=== PATIENT | male | born 1960 ===

== ENCOUNTER 2017-06-03 15:43 | Inpatient (IN) ==
[2017-06-03] MEDS ORDERED: CLINDAMYCIN INJ 600 MG in PREMIX 1 EACH IV STA (16:30)
[2017-06-03] MEDS ORDERED: GLUCAGON 1 MG VIAL IM PRN ×2 (16:49→16:50)
[2017-06-03] MEDS ORDERED: DEXTROSE 50% 25 GM/50 ML VIAL IV PRN ×2 (16:49→16:50)
[2017-06-03] MEDS ORDERED: ZALEPLON 5 MG CAPSULE PO PRN (16:50)
[2017-06-03] MEDS ORDERED: MORPHINE 10 MG/1 ML VIAL IV PRN (16:50)
[2017-06-03] MEDS ORDERED: ACETAMINOPHEN 325 MG TABLET PO PRN (16:50)
[2017-06-03] MEDS ORDERED: ONDANSETRON 4 MG/2 ML VIAL IV PRN (16:50)
[2017-06-03] MEDS ORDERED: diphenhydrAMINE CAP 25 MG CAPSULE PO PRN (16:50)
[2017-06-03] MEDS ORDERED: CLINDAMYCIN INJ 50 ML IV ONE (17:46)
[2017-06-03 18:18] LABS: Risk Ratio 2.13; VLDL CHOLESTEROL 22.4 MG/DL
[2017-06-03] MEDS ORDERED: INSULIN DETEMIR 100 UNIT/ML SUBCUT SCH (21:00)
[2017-06-03] MEDS: glyBURIDE/METFORMIN 5-500 MG TABLET PO SCH (21:59)
[2017-06-03] MEDS: ENOXAPARIN 40 MG/0.4 ML SYRINGE SUBCUT SCH (22:00)
[2017-06-03] MEDS: DOCUSATE SODIUM 100 MG CAPSULE PO SCH (22:00)
[2017-06-03] MEDS: INSULIN REGULAR 100 UNIT/ML SUBCUT SCH (22:00)
[2017-06-03] MEDS: INSULIN GLARGINE 100 UNIT/ML SUBCUT SCH (22:00)
[2017-06-03] MEDS: PIPERACILLIN/TAZOBACTAM 3,375 MG in SODIUM CHLORIDE 0.9% 100 ML IV SCH (22:22)
[2017-06-03] MEDS: SODIUM CHLORIDE 0.45% 1,000 ML IV SCH (22:22)
[2017-06-04] MEDS: VANCOMYCIN INJ 1,250 MG in SODIUM CHLORIDE 0.45% 250 ML IV SCH ×2 (01:54→12:22)
[2017-06-04] MEDS: SODIUM CHLORIDE 0.45% 1,000 ML IV SCH ×3 (02:19→17:44)
[2017-06-04] MEDS: PIPERACILLIN/TAZOBACTAM 3,375 MG in SODIUM CHLORIDE 0.9% 100 ML IV SCH ×2 (06:45→15:52)
[2017-06-04 06:51] LABS: Basophils % 0.3 % (0.0-0.8); Eosinophils # 0.1 10*3/uL (0.0-0.87); Eosinophils % 1.1 % (0.00-10.9); Hematocrit 39.8 VOL% (42.0-52.0); Hemoglobin 13.8 GM/DL (14.0-18.0); Immature Granulocytes % 1.1 %; Lymphocytes # 2.2 10*3/uL (1.4-4.0); Lymphocytes % 25.1 % (21.2-54.2); Mean Corpuscular HGB Conc 34.7 GM/DL (32-36); Mean Corpuscular Hemoglobin 29 PG (27-34); Mean Corpuscular Volume 83.4 FL (87-102); Mean Platelet Volume 11.4 FL (9.6-12.0); Monocytes # 0.5 10*3/uL (0.11-0.8); Monocytes % 6.1 % (1.7-12.7); Neutrophils # 5.8 10*3/uL (1.4-7.4); Neutrophils % 66.3 % (38.7-73.9); Platelet Count 200 T/CUMM (130-400); Red Blood Count 4.77 MC/CUMM (3.8-5.5); Red Cell Distribution Width 12.8 % (9.3-17.3); White Blood Count 8.8 T/CUMM (4-12)
[2017-06-04 07:32] LABS: Albumin 3.2 G/DL (3.4-5.0); Bilirubin,Total 1.7 MG/DL (0.2-1.0); Calcium 8.9 MG/DL (8.5-10.1); Magnesium 1.6 MG/DL (1.8-2.4); Osmolality,Calculated 278.5 MOS/KG (273-304); Potassium 2.9 MMOL/L (3.5-5.1); Total Protein 6.8 G/DL (6.4-8.3)
[2017-06-04] MEDS ORDERED: INSULIN DETEMIR 100 UNIT/ML SUBCUT SCH (09:00)
[2017-06-04] MEDS: DOCUSATE SODIUM 100 MG CAPSULE PO SCH ×2 (09:45→20:32)
[2017-06-04] MEDS: POTASSIUM CHLORIDE 20 MEQ TABLET PO SCH ×4 (09:45→20:31)
[2017-06-04] MEDS: LISINOPRIL 20 MG TABLET PO SCH (09:45)
[2017-06-04] MEDS: amLODIPine 5 MG TABLET PO SCH (09:46)
[2017-06-04] MEDS: SIMVASTATIN 10 MG TABLET PO SCH (09:46)
[2017-06-04] MEDS: PANTOPRAZOLE 40 MG TABLET PO SCH (09:46)
[2017-06-04] MEDS: INSULIN REGULAR 100 UNIT/ML SUBCUT SCH ×4 (09:48→20:42)
[2017-06-04] MEDS: ASPIRIN EC 81 MG TABLET PO SCH (09:48)
[2017-06-04] MEDS: INSULIN NPH 100 UNIT/ML SUBCUT SCH ×3 (09:49→17:43)
[2017-06-04] MEDS ORDERED: LIDOCAINE 1%/EPI INJ 20 ML VIAL ONE (11:50)
[2017-06-04] MEDS ORDERED: LIDOCAINE 1%/EPI INJ 20 ML VIAL MISC INJ ONE (11:51)
[2017-06-04] MEDS: ENOXAPARIN 40 MG/0.4 ML SYRINGE SUBCUT SCH (20:32)
[2017-06-04] MEDS: INSULIN GLARGINE 100 UNIT/ML SUBCUT SCH (20:42)
[2017-06-05] MEDS: VANCOMYCIN INJ 1,250 MG in SODIUM CHLORIDE 0.45% 250 ML IV SCH ×2 (00:30→13:48)
[2017-06-05] MEDS: SODIUM CHLORIDE 0.45% 1,000 ML IV SCH ×3 (01:26→19:17)
[2017-06-05] MEDS: PIPERACILLIN/TAZOBACTAM 3,375 MG in SODIUM CHLORIDE 0.9% 100 ML IV SCH ×3 (03:26→18:21)
[2017-06-05 05:39] LABS: Basophils % 0.2 % (0.0-0.8); Eosinophils # 0.1 10*3/uL (0.0-0.87); Eosinophils % 1.8 % (0.00-10.9); Hematocrit 34.9 VOL% (42.0-52.0); Hemoglobin 12.4 GM/DL (14.0-18.0); Immature Granulocytes % 0.2 %; Immature Granulocytes Absolute 0.01 #; Lymphocytes # 2.1 10*3/uL (1.4-4.0); Lymphocytes % 33.9 % (21.2-54.2); Mean Corpuscular HGB Conc 35.5 GM/DL (32-36); Mean Corpuscular Hemoglobin 29 PG (27-34); Mean Corpuscular Volume 82.5 FL (87-102); Mean Platelet Volume 11.2 FL (9.6-12.0); Monocytes # 0.4 10*3/uL (0.11-0.8); Neutrophils # 3.5 10*3/uL (1.4-7.4); Neutrophils % 56.9 % (38.7-73.9); Platelet Count 182 T/CUMM (130-400); Red Blood Count 4.23 MC/CUMM (3.8-5.5); White Blood Count 6.1 T/CUMM (4-12)
[2017-06-05 06:02] LABS: Calcium 8.1 MG/DL (8.5-10.1); Magnesium 1.8 MG/DL (1.8-2.4); Osmolality,Calculated 282.8 MOS/KG (273-304); Potassium 3.2 MMOL/L (3.5-5.1)
[2017-06-05] MEDS: INSULIN REGULAR 100 UNIT/ML SUBCUT SCH ×4 (07:35→21:32)
[2017-06-05] MEDS: INSULIN NPH 100 UNIT/ML SUBCUT SCH ×3 (07:35→17:38)
[2017-06-05] MEDS: LISINOPRIL 20 MG TABLET PO SCH (09:08)
[2017-06-05] MEDS: PANTOPRAZOLE 40 MG TABLET PO SCH (09:09)
[2017-06-05] MEDS: ASPIRIN EC 81 MG TABLET PO SCH (09:09)
[2017-06-05] MEDS: amLODIPine 5 MG TABLET PO SCH (09:09)
[2017-06-05] MEDS: SIMVASTATIN 10 MG TABLET PO SCH (09:09)
[2017-06-05] MEDS: DOCUSATE SODIUM 100 MG CAPSULE PO SCH ×2 (09:09→21:31)
[2017-06-05] MEDS ORDERED: POTASSIUM CHLORIDE RIDER 10 MEQ in PREMIX 1 EACH IV PRN (20:53)
[2017-06-05] MEDS: INSULIN GLARGINE 100 UNIT/ML SUBCUT SCH (21:32)
[2017-06-05] MEDS: ENOXAPARIN 40 MG/0.4 ML SYRINGE SUBCUT SCH (21:33)
[2017-06-05] MEDS ORDERED: POTASSIUM CHLORIDE INJ 40 MEQ in SODIUM CHLORIDE 0.9% 500 ML IV ONE (22:00)
[2017-06-06] MEDS: VANCOMYCIN INJ 1,250 MG in SODIUM CHLORIDE 0.45% 250 ML IV SCH ×2 (01:12→14:42)
[2017-06-06] MEDS: SODIUM CHLORIDE 0.45% 1,000 ML IV SCH ×2 (01:13→10:03)
[2017-06-06] MEDS: PIPERACILLIN/TAZOBACTAM 3,375 MG in SODIUM CHLORIDE 0.9% 100 ML IV SCH ×3 (04:10→21:18)
[2017-06-06] MEDS ORDERED: MUPIROCIN 2% OINT 22 GM TUBE TOP ONE (06:41)
[2017-06-06] MEDS ORDERED: LIDOCAINE 2%/EPI 20 ML VIAL ONE (06:41)
[2017-06-06] MEDS: INSULIN NPH 100 UNIT/ML SUBCUT SCH ×3 (09:47→18:32)
[2017-06-06] MEDS: INSULIN REGULAR 100 UNIT/ML SUBCUT SCH ×4 (09:47→21:17)
[2017-06-06] MEDS: LISINOPRIL 20 MG TABLET PO SCH (10:04)
[2017-06-06] MEDS: amLODIPine 5 MG TABLET PO SCH (10:04)
[2017-06-06] MEDS: SIMVASTATIN 10 MG TABLET PO SCH (10:05)
[2017-06-06] MEDS: ASPIRIN EC 81 MG TABLET PO SCH (10:05)
[2017-06-06] MEDS: PANTOPRAZOLE 40 MG TABLET PO SCH (10:05)
[2017-06-06] MEDS: DOCUSATE SODIUM 100 MG CAPSULE PO SCH ×2 (10:06→21:17)
[2017-06-06] MEDS: POTASSIUM CHLORIDE 20 MEQ TABLET PO SCH ×2 (16:14→21:17)
[2017-06-06] MEDS ORDERED: POTASSIUM CHLORIDE 20 MEQ TABLET PO SCH (21:00)
[2017-06-06] MEDS: INSULIN GLARGINE 100 UNIT/ML SUBCUT SCH (21:17)
[2017-06-06] MEDS: ENOXAPARIN 40 MG/0.4 ML SYRINGE SUBCUT SCH (21:17)
[2017-06-07] MEDS: PIPERACILLIN/TAZOBACTAM 3,375 MG in SODIUM CHLORIDE 0.9% 100 ML IV SCH ×3 (03:25→21:23)
[2017-06-07 07:28] LABS: Calcium 8.1 MG/DL (8.5-10.1); Magnesium 1.8 MG/DL (1.8-2.4); Potassium 3.7 MMOL/L (3.5-5.1)
[2017-06-07] MEDS: INSULIN NPH 100 UNIT/ML SUBCUT SCH ×3 (08:56→18:24)
[2017-06-07] MEDS: INSULIN REGULAR 100 UNIT/ML SUBCUT SCH ×4 (08:56→21:24)
[2017-06-07] MEDS: PANTOPRAZOLE 40 MG TABLET PO SCH (10:17)
[2017-06-07] MEDS: LISINOPRIL 20 MG TABLET PO SCH (10:17)
[2017-06-07] MEDS: ASPIRIN EC 81 MG TABLET PO SCH (10:18)
[2017-06-07] MEDS: amLODIPine 5 MG TABLET PO SCH (10:18)
[2017-06-07] MEDS: SIMVASTATIN 10 MG TABLET PO SCH (10:18)
[2017-06-07] MEDS: DOCUSATE SODIUM 100 MG CAPSULE PO SCH ×2 (10:25→21:24)
[2017-06-07] MEDS: INSULIN GLARGINE 100 UNIT/ML SUBCUT SCH (21:24)
[2017-06-07] MEDS: ENOXAPARIN 40 MG/0.4 ML SYRINGE SUBCUT SCH (21:24)
[2017-06-08] MEDS: PIPERACILLIN/TAZOBACTAM 3,375 MG in SODIUM CHLORIDE 0.9% 100 ML IV SCH ×3 (05:10→22:01)
[2017-06-08 05:58] LABS: Basophils % 0.4 % (0.0-0.8); Eosinophils # 0.2 10*3/uL (0.0-0.87); Eosinophils % 3.5 % (0.00-10.9); Hematocrit 35.9 VOL% (42.0-52.0); Hemoglobin 12.7 GM/DL (14.0-18.0); Immature Granulocytes % 0.2 %; Immature Granulocytes Absolute 0.01 #; Lymphocytes # 1.7 10*3/uL (1.4-4.0); Lymphocytes % 35.4 % (21.2-54.2); Mean Corpuscular HGB Conc 35.4 GM/DL (32-36); Mean Corpuscular Hemoglobin 30 PG (27-34); Mean Corpuscular Volume 83.3 FL (87-102); Mean Platelet Volume 10.8 FL (9.6-12.0); Monocytes # 0.4 10*3/uL (0.11-0.8); Monocytes % 7.7 % (1.7-12.7); Neutrophils # 2.6 10*3/uL (1.4-7.4); Neutrophils % 52.8 % (38.7-73.9); Platelet Count 206 T/CUMM (130-400); Red Blood Count 4.31 MC/CUMM (3.8-5.5); Red Cell Distribution Width 13.3 % (9.3-17.3); White Blood Count 4.8 T/CUMM (4-12)
[2017-06-08 06:29] LABS: Calcium 8.6 MG/DL (8.5-10.1); Magnesium 1.9 MG/DL (1.8-2.4); Osmolality,Calculated 283.8 MOS/KG (273-304); Potassium 3.4 MMOL/L (3.5-5.1)
[2017-06-08] MEDS ORDERED: POTASSIUM CHLORIDE 20 MEQ TABLET PO ONE (08:08)
[2017-06-08] MEDS: INSULIN NPH 100 UNIT/ML SUBCUT SCH ×3 (08:43→17:11)
[2017-06-08] MEDS: INSULIN REGULAR 100 UNIT/ML SUBCUT SCH ×4 (08:43→22:02)
[2017-06-08] MEDS: LISINOPRIL 20 MG TABLET PO SCH (09:02)
[2017-06-08] MEDS: SIMVASTATIN 10 MG TABLET PO SCH (09:03)
[2017-06-08] MEDS: PANTOPRAZOLE 40 MG TABLET PO SCH (09:03)
[2017-06-08] MEDS: amLODIPine 5 MG TABLET PO SCH (09:03)
[2017-06-08] MEDS: ASPIRIN EC 81 MG TABLET PO SCH (09:04)
[2017-06-08] MEDS: DOCUSATE SODIUM 100 MG CAPSULE PO SCH ×2 (09:05→22:01)
[2017-06-08] MEDS: POTASSIUM CHLORIDE 20 MEQ TABLET PO SCH ×2 (12:27→17:23)
[2017-06-08] MEDS: glyBURIDE/METFORMIN 5-500 MG TABLET PO SCH (17:22)
[2017-06-08] MEDS: INSULIN GLARGINE 100 UNIT/ML SUBCUT SCH (22:01)
[2017-06-08] MEDS: ENOXAPARIN 40 MG/0.4 ML SYRINGE SUBCUT SCH (22:01)
[2017-06-09] MEDS: PIPERACILLIN/TAZOBACTAM 3,375 MG in SODIUM CHLORIDE 0.9% 100 ML IV SCH (05:35)
[2017-06-09 07:07] LABS: Calcium 8.2 MG/DL (8.5-10.1); Osmolality,Calculated 286.7 MOS/KG (273-304); Potassium 3.8 MMOL/L (3.5-5.1)
[2017-06-09] MEDS: POTASSIUM CHLORIDE 20 MEQ TABLET PO SCH (07:25)
[2017-06-09] MEDS: INSULIN REGULAR 100 UNIT/ML SUBCUT SCH ×2 (08:11→11:30)
[2017-06-09] MEDS: INSULIN NPH 100 UNIT/ML SUBCUT SCH ×2 (08:11→11:30)
[2017-06-09] MEDS: amLODIPine 5 MG TABLET PO SCH (08:12)
[2017-06-09] MEDS: LISINOPRIL 20 MG TABLET PO SCH (08:12)
[2017-06-09] MEDS: PANTOPRAZOLE 40 MG TABLET PO SCH (08:13)
[2017-06-09] MEDS: ASPIRIN EC 81 MG TABLET PO SCH (08:13)
[2017-06-09] MEDS: DOCUSATE SODIUM 100 MG CAPSULE PO SCH (08:14)
[2017-06-09] MEDS: glyBURIDE/METFORMIN 5-500 MG TABLET PO SCH (08:15)
[2017-06-09] MEDS: SIMVASTATIN 10 MG TABLET PO SCH (08:54)
[2017-06-09 11:41] VITALS: BP 143/73
== END 2017-06-09 11:55 | disposition home or self-care (01) | DRG 603 ==
LOC: EDUNIT# → N.ED 15:43 → N.EDINP 16:34 → SUATTDRO 16:34 → N.EDINP 18:24 → N.3E 18:31
PROVIDERS: ADMIT Internal Medicine; ATTEND Internal Medicine